=== PATIENT | female | born 1985 | race Caucasian/White ===

== ENCOUNTER 2016-08-21 20:05 | Emergency (ER) | payer MEDICAID ==
[2016-08-21 20:22] VITALS: BMI 37.8
[2016-08-21 20:24] VITALS: O2SAT 100
[2016-08-21] MEDS ORDERED: TraMADol/Apap 37.5/325 mg Tab PO STA (20:34)
--- NOTE | 2016-08-21 21:11 | ED PDOC ---
Arrival/HPI - General Chief Complaint: Trauma Time Seen by Provider: 08/21/16 20:25 Historian: Patient - History of Present Illness Narrative History of Present Illness (Text): 08/21/16 20:25 A 31 year old female, whose past medical history includes cervical radiculopathy , presents to the emergency department complaining of lower back and tail bone pressure and pain after a fall this morning when a chair broke. Patient reports earlier today she fell off the chair and landed on her tail bone. Pain is worse with movement, sitting or standing. She did not take any medication for the pain. She denies any leg pain, bladder incontinence, abdominal pain, or any other complaints at this time. Time/Duration: 4-6 hours Symptom Onset: Sudden Symptom Course: Unchanged Quality: Pressure, Other Activities at Onset: Rest Context: Home Past Medical History - Provider Review Nursing Documentation Reviewed: Yes - Infectious Disease Hx of Infectious Diseases: None - Tetanus Immunization Tetanus Immunization: Unknown - Psychiatric Hx Substance Use: No - Surgical History Hx Section: Yes - Anesthesia Hx Anesthesia: No Hx Anesthesia Reactions: No Hx Malignant Hyperthermia: No Family/Social History - Physician Review Nursing Documentation Reviewed: Yes Family/Social History: Unknown Family HX Smoking Status: Never Smoked Hx Alcohol Use: No Hx Substance Use: No Allergies/Home Meds Allergies/Adverse Reactions: Allergies No Known Allergies Allergy (Unverified 03/16/16 15:16) Review of Systems - Physician Review All systems were reviewed & negative as marked: Yes - Review of Systems Gastrointestinal: absent: Abdominal Pain Genitourinary Female: Other (no bladder incontinence) Musculoskeletal: Back Pain, Other (no leg pain) Physical Exam Vital Signs Reviewed: Yes Vital Signs Temp Pulse Resp BP Pulse Ox 08/21/16 20:22 98.4 F 73 16 108/70 100 Temperature: Afebrile Blood Pressure: Normal Pulse: Regular Respiratory Rate: Normal Appearance: Positive for: Well-Appearing, Non-Toxic, Comfortable Pain Distress: None Mental Status: Positive for: Alert and Oriented X 3 - Systems Exam Head: Present: Atraumatic, Normocephalic Abdomen: Present: Normal Bowel Sounds. No: Tenderness, Distention, Peritoneal Signs Back: Present: Midline Tenderness (lumbar), Other (coccyx tenderness) Medical Decision Making ED Course and Treatment: 08/21/16 20:25 Impression: A 31 year old female with lower back and coccyx pain. On examination patient has tenderness at the midline lumbar and coccyx region. Differential Diagnosis include but are not limited to: fracture vs bone contusion Plan: -- LS spine x-ray -- Sacrum and Coccyx x-ray -- POC urine -- Toradol and Ultracet -- Reassess and disposition Progress Notes: 08/21/16 22:05 Patient reports improvement of symptoms with toradol and ultracet; x-ray shows coccyx fracture - will d/c on naprosyn and tramadol. - RAD Interpretation Radiology Orders: 08/21/16 20:32 LS SPINE WITH OBL > 18 YRS OLD [RAD] Stat 08/21/16 20:33 SACRUM &/or COCCYX (MIN 2VW) [RAD] Stat - Medication Orders Current Medication Orders: Discontinued Medications Ketorolac Tromethamine (Toradol) 60 mg IM STAT STA Stop: 08/21/16 20:34 Last Admin: 08/21/16 20:47 Dose: 60 MG IM Administration Charges Document 08/21/16 20:47 SE (Rec: 08/21/16 20:47 SE [id number]) Injection Site MAR Injection Site Right Vastus Lateralis Charges for Administration # of IM Administrations 1 Tramadol/Acetaminophen (Ultracet 37.5/325 Mg) 2 tab PO STAT STA Stop: 08/21/16 20:35 Last Admin: 08/21/16 20:47 Dose: 2 TAB - Scribe Statement The provider has reviewed the documentation as recorded by the Scribe Yasmin June Provider Scribe Attestation: All medical record entries made by the Scribe were at my direction and personally dictated by me. I have reviewed the chart and agree that the record accurately reflects my personal performance of the history, physical exam, medical decision making, and the department course for this patient. I have also personally directed, reviewed, and agree with the discharge instructions and disposition. Disposition/Present on Arrival - Present on Arrival Any Indicators Present on Arrival: No History of DVT/PE: No History of Uncontrolled Diabetes: No Urinary Catheter: No History of Decub. Ulcer: No History Surgical Site Infection Following: None - Disposition Have Diagnosis and Disposition been Completed?: Yes Diagnosis: Fractured coccyx Disposition: HOME/ ROUTINE Disposition Time: 22:10 Patient Plan: Discharge Condition: GOOD Discharge Instructions (ExitCare): Coccyx Injury (ED) Additional Instructions: Take the naprosyn and tramadol as prescribed. Follow up with your primary care doctor. Return to the emergency department if any new concerning symptoms. Prescriptions: Naproxen [Naprosyn] 500 mg PO BID PRN #30 tab PRN Reason: Pain traMADol [Ultram] 1 - 2 tab PO Q8H PRN #20 tab PRN Reason: Pain, Severe (8-10) Referrals: Oumou Liriano MD [Primary Care Provider] - Follow up with primary
[2016-08-21 22:26] VITALS: BP 124/79; PULSE 66; RESP 22; TEMP 98.1
--- NOTE | 2016-08-22 10:54 | RAD ---
PROCEDURE: Radiographs of the Lumbar Spine. HISTORY: fell and hit low back COMPARISON: No prior. FINDINGS: BONES: Normal alignment. No listhesis. No fracture. DISC SPACES: Unremarkable. OTHER FINDINGS: Constipation without fecal impaction or obstruction. Incompletely visualized IUD. IMPRESSION: No acute findings related to/accounting for the clinical presentation.
--- NOTE | 2016-08-22 10:54 | RAD ---
PROCEDURE: Sacrum and coccyx HISTORY: fall and hit low back and coccyx COMPARISON: None TECHNIQUE: Standard protocol for this study/examination. FINDINGS: Displays coccygeal fracture, acute. Follow-up recommended based on overall appearance. IMPRESSION: Acute coccygeal fracture. Followup advised, consideration of cross-sectional imaging further assessment and characterization. Concordant results with the preliminary interpretation rendered by the emergency department physician procedure.
== END 2016-08-21 22:36 | disposition home or self-care (01) ==
LOC: ED 20:05
DX: S32.2XXA Fracture of coccyx, initial encounter for closed fracture (principal); W07.XXXA Fall from chair, initial encounter; Y92.009 Unspecified place in unspecified non-institutional (private) residence as the place of occurrence of the external cause
CPT/HCPCS: 72110; 72220; 96372; 99285; J1885

== ENCOUNTER 2018-08-14 12:16 | Outpatient (CLI) | payer MEDICAID | END 2018-08-14 12:17 | disposition home or self-care (01) | LOC: RAD 12:16 ==